=== PATIENT | female | born 1955 | race Hispanic/Latino ===

== ENCOUNTER 2022-09-25 12:15 | Outpatient (CLI) | payer BC | END 2022-09-25 12:16 | disposition home or self-care (01) | LOC: CSHMAMMO 12:15 | PROVIDERS: ATTEND Nurse Practitioner Family | DX: Z12.31 Encounter for screening mammogram for malignant neoplasm of breast (principal) | CPT/HCPCS: 77063; 77067 ==

== ENCOUNTER 2024-02-22 18:29 | Inpatient (IN) | payer BC, MEDICARE ==
[~2024-02-22 18:29] MED LIST: Iopamidol 370 76% 100 ML VIAL ONE
[2024-02-22] MEDS ORDERED: Morphine 4 MG/ML VIAL ONE (19:49)
[2024-02-22] MEDS ORDERED: Ondansetron PF 4 MG/2 ML Vial ONE (19:49)
[2024-02-22 20:04] LABS: #Basophils 0.06 10x3/uL (0.0-0.2); #Eosinophils 0.05 10x3/uL (0.0-0.5); #Monocytes 0.97 10x3/uL (0.0-1.1); #Neutrophils 15.89 10x3/uL (1.5-8.4); %Basophils 0.3 % (0.0-2.0); %Eosinophils 0.3 % (0.0-6.0); %Lymphocytes 11.5 % (18.0-47.0); %Neutrophils 82.5 % (40.0-75.0); Mean Corpuscular HGB CONC 33.3 g/dL (32.0-36.0); Mean Corpuscular Hemoglobin 29.5 pg (27.0-33.0); Mean Corpuscular Volume 88.6 fL (81.6-98.3); Mean Platelet Volume 9.6 fL (7.4-10.4); Platelet Count 269 10x3/uL (150-450); RBC Distribution Width 12.7 % (11.5-14.5); White Blood Cell (WBC) Count 19.3 10x3/uL (3.5-10.5)
[2024-02-22 20:23] LABS: ALT (SGPT) 109 U/L (8-55); AST (SGOT) 234 U/L (5-34); Albumin 4.1 g/dL (3.4-4.8); Alkaline Phosphatase 126 U/L (40-110); Anion Gap 17 mmol/L (10-20); BUN (Urea Nitrogen) 34 mg/dL (9.8-20.1); Bilirubin, Total 1.2 mg/dL (0.2-1.2); Calc. Creatinine Clearance 0 mL/min (70-130); Calcium 10.1 mg/dL (7.8-10.44); Carbon Dioxide 27 mmol/L (23-31); Chloride 103 mmol/L (98-107); Estimated GFR 45; Globulin 3.3 g/dL (2.4-3.5); Glucose 142 mg/dL (80-115); Magnesium 1.9 mg/dL (1.6-2.6); Potassium 3.7 mmol/L (3.5-5.1); Protein, Total 7.4 g/dL (5.8-8.1); Sodium 143 mmol/L (136-145)
[2024-02-22 20:29] LABS: Troponin I Less than 0.010 ng/mL (< 0.028)
[2024-02-22 20:53] LABS: Lipase 15271 U/L (8-78)
[2024-02-22 21:41] LABS: Actual Bicarbonate (HCO3v) 25.2 mEq/L (22-28); Analyzer IN Cardio CS ER; Base Excess 0.2 mEq/L (-2 - +2); Calcium, Ionized (venous) 1.11 mmol/L (1.16-1.32); Chloride (VBG) 104 mmol/L (98-106); Critical Notified By: CP.PH; Hematocrit-VBG 39 % (36.0-47.0); Hemoglobin (Hb) 13.2 g/dL (11.7-16.1); Puncture Site Other Site; Sodium 142 mmol/L (133-146); pH (venous) 7.392 (7.32-7.43)
[2024-02-22] MEDS ORDERED: Ondansetron PF 4 MG/2 ML Vial IVP PRN (23:07)
[2024-02-22] MEDS ORDERED: Zolpidem Tartrate 5 MG TAB PO PRN (23:07)
[2024-02-22] MEDS ORDERED: Morphine 4 MG/ML VIAL SLOW IVP PRN (23:10)
[2024-02-22] MEDS ORDERED: Glucagon 1 MG/ML KIT IM PRN (23:24)
[2024-02-22] MEDS ORDERED: Dextrose 5% in Water 1,000 ML IV PRN (23:24)
[2024-02-22] MEDS ORDERED: Dextrose 50% Abboject 50 ML SYRINGE SLOW IVP PRN (23:24)
[2024-02-23] MEDS: Lactated Ringer's 1,000 ML IV SCH (00:41)
[2024-02-23] MEDS: Pantoprazole 40 MG VIAL IVP SCH ×2 (00:42→09:53)
[2024-02-23] MEDS: Lactated Ringer's 500 ML IV SCH (00:42)
[2024-02-23 01:23] VITALS: BMI 29.2
[2024-02-23] MEDS: Morphine 2 MG/ML VIAL SLOW IVP PRN (03:03)
[2024-02-23 04:47] LABS: #Basophils 0.05 10x3/uL (0.0-0.2); #Eosinophils 0.04 10x3/uL (0.0-0.5); #Monocytes 0.63 10x3/uL (0.0-1.1); #Neutrophils 7.05 10x3/uL (1.5-8.4); %Basophils 0.4 % (0.0-2.0); %Eosinophils 0.4 % (0.0-6.0); %Lymphocytes 30.5 % (18.0-47.0); %Monocytes 5.6 % (0.0-10.0); %Neutrophils 62.8 % (40.0-75.0); Hematocrit 34.8 % (34.9-44.5); Hemoglobin 11.5 g/dL (12.0-15.5); Mean Corpuscular Hemoglobin 29.4 pg (27.0-33.0); Mean Platelet Volume 9.5 fL (7.4-10.4); Platelet Count 237 10x3/uL (150-450); RBC Distribution Width 12.8 % (11.5-14.5); Red Blood Cell (RBC) Count 3.91 10x6/uL (3.90-5.03); White Blood Cell (WBC) Count 11.2 10x3/uL (3.5-10.5)
[2024-02-23 05:11] LABS: ALT (SGPT) 120 U/L (8-55); AST (SGOT) 129 U/L (5-34); Albumin 3.3 g/dL (3.4-4.8); Alkaline Phosphatase 116 U/L (40-110); Anion Gap 13 mmol/L (10-20); BUN (Urea Nitrogen) 22 mg/dL (9.8-20.1); Bilirubin, Total 1.3 mg/dL (0.2-1.2); CK (CPK) 38 U/L (29-168); Calc. Creatinine Clearance 67 mL/min (70-130); Calcium 9.2 mg/dL (7.8-10.44); Carbon Dioxide 24 mmol/L (23-31); Chloride 108 mmol/L (98-107); Estimated GFR 81; Globulin 2.9 g/dL (2.4-3.5); Glucose 98 mg/dL (80-115); Magnesium 1.7 mg/dL (1.6-2.6); Potassium 3.5 mmol/L (3.5-5.1); Protein, Total 6.2 g/dL (5.8-8.1); Sodium 141 mmol/L (136-145)
[2024-02-23 05:24] LABS: Bilirubin Neg (Negative); Blood, Urine Negative (Negative); Clarity Clear (Clear); Glucose, Urine (Dipstick) Normal (Negative); Ketone, Urine Negative (Negative); Leukocyte Negative (Negative); Nitrite Negative (Negative); Protein, Urine (Dipstick) Negative (Neg-Trace); Specific Gravity, Urine 1.015 (1.005-1.030); Urobilinogen Normal mg/dL (Less than 2)
[2024-02-23 05:43] LABS: Lipase 3497 U/L (8-78)
[2024-02-23 05:55] LABS: Bacteria/HPF None Seen HPF (None Seen); RBC/HPF None Seen HPF (0-3); Squamous Epithelial None Seen HPF (0-3); WBC/HPF None Seen HPF (0-3)
[2024-02-23] MEDS: Potassium Chloride 20 MEQ TAB PO SCH (06:01)
[2024-02-23] MEDS: Enoxaparin 40 MG (0.4 mL) SYRINGE SC SCH (09:55)
[2024-02-23] MEDS: Magnesium Oxide 400 MG TAB PO SCH (09:55)
[2024-02-23] MEDS: Dextrose 5%-Lactated Ringers 1,000 ML IV SCH (13:07)
[2024-02-24 05:01] LABS: #Basophils 0.05 10x3/uL (0.0-0.2); #Eosinophils 0.21 10x3/uL (0.0-0.5); #Monocytes 0.57 10x3/uL (0.0-1.1); #Neutrophils 4.16 10x3/uL (1.5-8.4); %Basophils 0.6 % (0.0-2.0); %Eosinophils 2.3 % (0.0-6.0); %Lymphocytes 44.4 % (18.0-47.0); %Monocytes 6.3 % (0.0-10.0); %Neutrophils 46.1 % (40.0-75.0); Hematocrit 35.8 % (34.9-44.5); Hemoglobin 11.6 g/dL (12.0-15.5); Mean Corpuscular HGB CONC 32.4 g/dL (32.0-36.0); Mean Corpuscular Hemoglobin 28.7 pg (27.0-33.0); Mean Corpuscular Volume 88.6 fL (81.6-98.3); Mean Platelet Volume 9.3 fL (7.4-10.4); Platelet Count 223 10x3/uL (150-450); RBC Distribution Width 12.4 % (11.5-14.5); Red Blood Cell (RBC) Count 4.04 10x6/uL (3.90-5.03)
[2024-02-24 05:09] LABS: ALT (SGPT) 75 U/L (8-55); AST (SGOT) 41 U/L (5-34); Albumin 3.2 g/dL (3.4-4.8); Alkaline Phosphatase 105 U/L (40-110); Anion Gap 13 mmol/L (10-20); BUN (Urea Nitrogen) 10 mg/dL (9.8-20.1); Bilirubin, Total 1.3 mg/dL (0.2-1.2); Calc. Creatinine Clearance 71 mL/min (70-130); Carbon Dioxide 25 mmol/L (23-31); Chloride 105 mmol/L (98-107); Estimated GFR 88; Globulin 2.9 g/dL (2.4-3.5); Glucose 102 mg/dL (80-115); Potassium 3.7 mmol/L (3.5-5.1); Protein, Total 6.1 g/dL (5.8-8.1); Sodium 139 mmol/L (136-145)
[2024-02-25 04:54] LABS: ALT (SGPT) 52 U/L (8-55); AST (SGOT) 26 U/L (5-34); Albumin 3.1 g/dL (3.4-4.8); Alkaline Phosphatase 97 U/L (40-110); Anion Gap 12 mmol/L (10-20); BUN (Urea Nitrogen) 9 mg/dL (9.8-20.1); Bilirubin, Total 0.9 mg/dL (0.2-1.2); Calc. Creatinine Clearance 73 mL/min (70-130); Carbon Dioxide 25 mmol/L (23-31); Chloride 106 mmol/L (98-107); Estimated GFR 91; Glucose 110 mg/dL (80-115); Potassium 3.6 mmol/L (3.5-5.1); Protein, Total 6.1 g/dL (5.8-8.1); Sodium 139 mmol/L (136-145)
[2024-02-25 05:03] LABS: #Basophils 0.05 10x3/uL (0.0-0.2); #Eosinophils 0.25 10x3/uL (0.0-0.5); #Monocytes 0.48 10x3/uL (0.0-1.1); #Neutrophils 3.54 10x3/uL (1.5-8.4); %Basophils 0.6 % (0.0-2.0); %Eosinophils 3.2 % (0.0-6.0); %Lymphocytes 45.4 % (18.0-47.0); %Monocytes 6.1 % (0.0-10.0); %Neutrophils 44.6 % (40.0-75.0); Hematocrit 34.2 % (34.9-44.5); Hemoglobin 11.6 g/dL (12.0-15.5); Mean Corpuscular HGB CONC 33.9 g/dL (32.0-36.0); Mean Corpuscular Hemoglobin 30.1 pg (27.0-33.0); Mean Corpuscular Volume 88.8 fL (81.6-98.3); Mean Platelet Volume 9.6 fL (7.4-10.4); Platelet Count 222 10x3/uL (150-450); RBC Distribution Width 12.3 % (11.5-14.5); Red Blood Cell (RBC) Count 3.85 10x6/uL (3.90-5.03); White Blood Cell (WBC) Count 7.9 10x3/uL (3.5-10.5)
[2024-02-25] MEDS ORDERED: Glucagon 1 MG/ML KIT ONE (07:28)
[2024-02-25] MEDS ORDERED: Bupivacaine HCl 0.5%/Epinephrine 1:200,000/PF 30 ml Vial ONE (07:28)
[2024-02-25] MEDS ORDERED: Fentanyl 250 MCG/5 ML VIAL ONE (09:18)
[2024-02-25] MEDS ORDERED: PROPOFOL 20 ML ONE (09:18)
[2024-02-25] MEDS ORDERED: Rocuronium Bromide 10 MG/ML (10ML VIAL) ONE (09:19)
[2024-02-25] MEDS ORDERED: Lidocaine 2% PF 5 ML VIAL ONE (09:19)
[2024-02-25] MEDS ORDERED: CEFAZOLIN 1 GM VIAL ONE (09:44)
[2024-02-25] MEDS ORDERED: Ondansetron PF 4 MG/2 ML Vial ONE (09:48)
[2024-02-25] MEDS ORDERED: Dexamethasone 4 mg/ml Vial ONE (09:48)
[2024-02-25] MEDS ORDERED: Ketorolac Tromethamine 30 MG (1 mL) VIAL ONE (09:48)
[2024-02-25] MEDS ORDERED: SUGAMMADEX SODIUM 200 MG/2 ML VIAL ONE (10:23)
[2024-02-25] MEDS ORDERED: fentaNYL 50 mcg/mL 1 mL Vial ONE (11:03)
[2024-02-25] MEDS: Insulin Regular, Human 100 UNIT/ML 10 ML VIAL SC PRN (12:16)
[2024-02-25] MEDS: HYDROcodone/Acetaminophen 5/325 mg Tablet PO SCH (17:56)
[2024-02-25] MEDS: HYDROcodone/Acetaminophen 5/325 mg Tablet PO PRN (22:41)
[2024-02-26 04:02] LABS: #Basophils 0.02 10x3/uL (0.0-0.2); #Monocytes 0.74 10x3/uL (0.0-1.1); #Neutrophils 12.96 10x3/uL (1.5-8.4); %Basophils 0.1 % (0.0-2.0); %Lymphocytes 13.3 % (18.0-47.0); %Monocytes 4.7 % (0.0-10.0); %Neutrophils 81.5 % (40.0-75.0); Hematocrit 33.9 % (34.9-44.5); Hemoglobin 11.6 g/dL (12.0-15.5); Mean Corpuscular HGB CONC 34.2 g/dL (32.0-36.0); Mean Corpuscular Hemoglobin 29.5 pg (27.0-33.0); Mean Corpuscular Volume 86.3 fL (81.6-98.3); Mean Platelet Volume 9.3 fL (7.4-10.4); Platelet Count 224 10x3/uL (150-450); RBC Distribution Width 12.2 % (11.5-14.5); Red Blood Cell (RBC) Count 3.93 10x6/uL (3.90-5.03); White Blood Cell (WBC) Count 15.9 10x3/uL (3.5-10.5)
[2024-02-26 04:14] LABS: ALT (SGPT) 96 U/L (8-55); AST (SGOT) 79 U/L (5-34); Albumin 3.1 g/dL (3.4-4.8); Alkaline Phosphatase 96 U/L (40-110); Anion Gap 13 mmol/L (10-20); BUN (Urea Nitrogen) 12 mg/dL (9.8-20.1); Bilirubin, Total 0.9 mg/dL (0.2-1.2); Calc. Creatinine Clearance 66 mL/min (70-130); Carbon Dioxide 23 mmol/L (23-31); Chloride 104 mmol/L (98-107); Estimated GFR 80; Globulin 3.1 g/dL (2.4-3.5); Glucose 154 mg/dL (80-115); Potassium 3.7 mmol/L (3.5-5.1); Protein, Total 6.2 g/dL (5.8-8.1); Sodium 136 mmol/L (136-145)
[2024-02-26] MEDS: Acetaminophen 325 MG TAB PO PRN (08:37)
[2024-02-26 12:13] VITALS: BP 124/66; TEMP 98.5
== END 2024-02-26 14:00 | disposition home or self-care (01) | DRG 417 ==
LOC: CSHERS 18:29 → CSHTELE 23:12
PROVIDERS: ADMIT Student in an Organized Health Care Education/Training Program; ATTEND Internal Medicine
PROC: 0FT44ZZ Resection of Gallbladder, Percutaneous Endoscopic Approach (ICD-10-PCS; principal; 2024-02-25)
DX: K80.10 Calculus of gallbladder with chronic cholecystitis without obstruction (principal); K85.10 Biliary acute pancreatitis without necrosis or infection; N17.9 Acute kidney failure, unspecified; R65.10 Systemic inflammatory response syndrome (SIRS) of non-infectious origin without acute organ dysfunction; E11.9 Type 2 diabetes mellitus without complications; E78.00 Pure hypercholesterolemia, unspecified; I10 Essential (primary) hypertension; Z90.710 Acquired absence of both cervix and uterus; R74.01 Elevation of levels of liver transaminase levels; E78.5 Hyperlipidemia, unspecified
CPT/HCPCS: 36415; 36416; 71045; 74177; 74181; 76376; 76705; 80053; 81001; 82550; 82805; 83615; 83690; 83735; 83880; 84478; 84484; 85025; 88304; 93005; 96361; 96374; 96375; C1713; J0690; J1100; J1611; J1650; J1815; J1885; J2272; J2405; J2470; J2704; J3010; J7120; Q9967